=== PATIENT | female | born 2000 | race Caucasian/White ===

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

== ENCOUNTER → 2021-10-17 | Outpatient (CLI) | payer OTHER ==
--- NOTE | 2021-10-17 12:24 | CA ---
Exercise Stress Test Report Name: Bassam Yost Exam Date: 10/17/2021 11:43 Exam Location: [facility] Stress Ht (in): 68 Wt (lb): 275 BSA: 2.34 Ordering Phys: Irina Melendez MD Referring Phys: REBA,, Technologist: Ganga Gordon Age: 21 Gender: F : 2000 Procedure CPT: Indications: R07.9 CHEST PAIN ICD-10 Codes: Patient History: Chest Pain Medications: Meds past 24 hrs: Pretest Chest Pain: STRESS TEST Ante Protocol Exercise Duration (min:sec): 07:[address] Depressions (mm): Angina Score: Pablo Score: Resting HR (bpm): 93 Peak HR (bpm): 184 Resting BP (mmHg): 109 / 80 Peak BP (mmHg): 208 / 95 MPHR: 200 Target HR: 170 % MPHR: 92 METS: 8.9 Total Dose: Peak Dose: Atropine: Double Product: 53422 BP Response: Normal Resting Blood Pressure - Appropriate Stress Termination: Reached target heart rate Stress Symptoms: No chest pain or symptoms Stress Summary: The patient's target heart rate was achieved, The hemodynamic response to exercise was normal ECG ANALYSIS Resting ECG: Sinus rhythm. Normal repolarization. No arrhythmias. Normal conduction. Stress ECG: No ECG evidence of ischemia with exercise. CONCLUSIONS 1. Decrease exercise tolerance 2.No chest discomfort with stress test. 3.Normal ST segment response to stress. 4. No evidence of stress induced ischemia Dr. Rush Figueroa MD (Electronically Signed) Final Date: 17 October 2021 12:23
== END | disposition home or self-care (01) ==
LOC: RADNMMAIN 10:14
PROVIDERS: ATTEND Internal Medicine Interventional Cardiology
DX: R07.9 Chest pain, unspecified (principal)
CPT/HCPCS: 93017

== ENCOUNTER 2022-03-27 10:06 | Day surgery (SDC) | payer OTHER ==
[2022-03-24 15:14] VITALS: BMI 42.5
[~2022-03-27 10:06] MED LIST: SODIUM CHLORIDE 0.9% 1,000 ML IV SCH
[2022-03-27 10:29] VITALS: BP 133/82; PULSE 89; RESP 18; TEMP 98.5
--- NOTE | 2022-03-28 07:54 | P.EPPROC ---
- EP Procedure Note Electrophysiology Procedure Note: Diagnosis Recurrent syncope Twelve-lead EKG shows sinus rhythm normal IA incomplete right bundle branch block pattern Isolated inverted T-wave in lead 3 Normal QT interval no delta waves no epsilon waves normal ST segments in the precordial leads Tilt table test for protocol Baseline blood pressure 132/72 mmHg Baseline heart rate 66 beats a minute Patient was tilted upright at 90 left 70 per protocol in the first 10 minutes and erosive change in her blood pressure but her heart rate increased up to 111 beats a minute. She was dizzy immediately upon standing Subsequently she felt weak in her legs felt cold for the whole body and also complaining of chest pressure. Blood pressure was normal sinus tachycardia was noted At 34 minutes into the tilt table test there was a drop in blood pressure down to 81 mmHg. She was dizzy, nauseous lethargic and presyncopal Patient is laid supine heart rate normalized the 60s and her blood pressure normalized Impression Normal twelve-lead EKG Orthostatic intolerance/postural tachycardia with a secondary neurocardiogenic phenomenon late in the tilt test
== END 2022-03-27 13:48 | disposition home or self-care (01) ==
LOC: CATHEP 10:06
PROVIDERS: ATTEND Internal Medicine Clinical Cardiac Electrophysiology
DX: R55 Syncope and collapse (principal); I34.0 Nonrheumatic mitral (valve) insufficiency
CPT/HCPCS: 81025; 93660